=== PATIENT | male | born 1965 | race Hispanic/Latino ===

== ENCOUNTER → 2020-07-03 | Outpatient (CLI) | payer OTHER | LOC: MRI 15:01 | PROVIDERS: ATTEND General Practice | DX: S46.211D Strain of muscle, fascia and tendon of other parts of biceps, right arm, subsequent encounter (principal) ==

== ENCOUNTER → 2021-01-25 | Outpatient (CLI) | payer OTHER | LOC: MRI 09:52 | PROVIDERS: ATTEND Nurse Practitioner Family | DX: M54.12 Radiculopathy, cervical region (principal) | CPT/HCPCS: 72141 ==